=== PATIENT | female | born 1955 | race Two or more races ===

== ENCOUNTER 2019-05-16 14:29 | Emergency (ER) | payer OTHER ==
--- NOTE | 2019-05-16 15:04 | EDM.PDOC ---
ED HPI GENERAL MEDICAL PROBLEM - General Stated Complaint: ANXIETY Time Seen by Provider: 05/16/19 15:03 Source of Information: Reports: Patient History Limitations: Reports: No Limitations - History of Present Illness INITIAL COMMENTS - FREE TEXT/NARRATIVE: HISTORY AND PHYSICAL: History of present illness: Patient is a 64-year-old female who presents to the emergency room today requesting a medication refill. Patient has a history of anxiety and does take Xanax daily. She states she ran out of her medication and is originally from [place]. She does not return home for 7 days. Patient denies any fever, chills, headache, change in vision, syncope or near syncope. Denies any chest pain, back pain, shortness of breath or cough. Denies any abdominal pain, nausea , vomiting, diarrhea, constipation or dysuria. Has not noted any blood in urine or stool. Patient has been eating and drinking appropriately. Review of systems: As per history of present illness and below otherwise all systems reviewed and negative. Past medical history: As per history of present illness and as reviewed below otherwise noncontributory. Surgical history: As per history of present illness and as reviewed below otherwise noncontributory. Social history: See social history for further information Family history: As per history of present illness and as reviewed below otherwise noncontributory. Physical exam: General: Well-developed and well-nourished 64-year-old female. Alert and oriented. Nontoxic appearing and in no acute distress. HEENT: Atraumatic, normocephalic, pupils equal and reactive bilaterally, negative for conjunctival pallor or scleral icterus, mucous membranes moist, trachea midline. No drooling or trismus noted. No meningeal signs. No hot potato voice noted. Lungs: Clear to auscultation, breath sounds equal bilaterally, chest nontender. Heart: S1S2, regular rate and rhythm without overt murmur Abdomen: Soft, nondistended, nontender. Skin: Intact, warm, dry. No lesions or rashes noted. Extremities: Atraumatic, moves all extremities per self without difficulty or deficits, negative for cords or calf pain. Neurovascular unremarkable. Neuro: Awake, alert, oriented. Cranial nerves II through XII unremarkable. Cerebellum unremarkable. Motor and sensory unremarkable throughout. Exam nonfocal. Notes: Patient is aware that medications are typically not refilled through the emergency room. She does have an appointment next week. I will give her a limited amount of medication to use as needed. Vital signs are stable. She offers no other concerns or complaints and declines any diagnostics at this time. Supportive care measures were reviewed and discussed. Voices understanding and is agreeable to plan of care. Denies any further questions or concerns at this time. Diagnostics: None Therapeutics: None Prescription: Xanax 0.5mg (#21) Impression: Anxiety Encounter for medication refill Plan: 1. Follow-up with your primary care provider for further medication refill. 2. Return to the ED as needed and as discussed. Definitive disposition and diagnosis as appropriate pending reevaluation and review of above. - Related Data Allergies Allergy/AdvReac Type Severity Reaction Status Date / Time metoclopramide [From Reglan] Allergy Airway Verified 05/16/19 15:05 Tightness prochlorperazine Allergy Airway Verified 05/16/19 15:05 [From Compazine] Tightness Home Meds: Home Meds ALPRAZolam [Alprazolam] 1 tab PO BID 05/16/19 [History] ALPRAZolam [Xanax] 0.5 mg PO TID PRN #21 tablet 05/16/19 [Rx] Amitriptyline [Elavil] 1 tab PO TID 05/16/19 [History] Biotin 1 tab PO DAILY 05/16/19 [History] Calcium Carbonate [Calcium] 1 tab PO DAILY 05/16/19 [History] Dicyclomine [Bentyl] 1 tab PO TID 05/16/19 [History] Levothyroxine Sodium [Synthroid] 1 tab PO DAILY 05/16/19 [History] ED ROS GENERAL - Review of Systems Review Of Systems: ROS reveals no pertinent complaints other than HPI. ED EXAM, GENERAL - Physical Exam Exam: See Below (See dictation) Course - Vital Signs Last Recorded V/S: Last Vital Signs Temp 98.0 F 05/16/19 15:00 Pulse 84 05/16/19 15:00 Resp 16 05/16/19 15:00 BP 129/69 05/16/19 15:00 Pulse Ox 94 L 05/16/19 15:00 Departure - Departure Time of Disposition: 15:07 Disposition: Home, Self-Care 01 Clinical Impression: Encounter for medication refill, Anxiety - Discharge Information Prescriptions: ALPRAZolam [Xanax] 0.5 mg PO TID PRN #21 tablet PRN Reason: Anxiety Referrals: PCP,None [Primary Care Provider] - Additional Instructions: The following information is given to patients seen in the emergency department who are being discharged to home. This information is to outline your options for follow-up care. We provide all patients seen in our emergency department with a follow-up referral. The need for follow-up, as well as the timing and circumstances, are variable depending upon the specifics of your emergency department visit. If you don't have a primary care physician on staff, we will provide you with a referral. We always advise you to contact your personal physician following an emergency department visit to inform them of the circumstance of the visit and for follow-up with them and/or the need for any referrals to a consulting specialist. The emergency department will also refer you to a specialist when appropriate. This referral assures that you have the opportunity for follow-up care with a specialist. All of these measure are taken in an effort to provide you with optimal care, which includes your follow-up. Under all circumstances we always encourage you to contact your private physician who remains a resource for coordinating your care. When calling for follow-up care, please make the office aware that this follow-up is from your recent emergency room visit. If for any reason you are refused follow-up, please contact the [facility] at and asked to speak to the emergency department charge nurse. [facility] [address] [place] [id number] [facility] [address] [place] [id number] 1. Follow-up with your primary care provider for further medication refill. 2. Return to the ED as needed and as discussed.
== END 2019-05-16 15:37 | disposition home or self-care (01) ==
LOC: MW.ED 14:29
DX: F41.9 Anxiety disorder, unspecified (principal); Z88.8 Allergy status to other drugs, medicaments and biological substances; Z76.0 Encounter for issue of repeat prescription
CPT/HCPCS: 99281; 99282

== ENCOUNTER 2019-05-21 16:55 | Emergency (ER) | payer OTHER ==
--- NOTE | 2019-05-21 17:39 | EDM.PDOC ---
ED HPI GENERAL MEDICAL PROBLEM - General Chief Complaint: Medication Administration Stated Complaint: UNKNOWN Time Seen by Provider: 05/21/19 17:26 - History of Present Illness INITIAL COMMENTS - FREE TEXT/NARRATIVE: HISTORY AND PHYSICAL: History of present illness: Patient is 64-year-old female who uses alprazolam 3 times a day for years presents with a concern of medication refill patient does have 6 tablets left but she will not be seen her doctor until standing is concerned about running out and possible complications related to that. She denies any other concern Review of systems: As per history of present illness and below otherwise all systems reviewed and negative. Past medical history: As per history of present illness and as reviewed below otherwise noncontributory. Surgical history: As per history of present illness and as reviewed below otherwise noncontributory. Social history: No reported history of drug or alcohol abuse. Family history: As per history of present illness and as reviewed below otherwise noncontributory. Physical exam: HEENT: Atraumatic, normocephalic, pupils reactive, negative for conjunctival pallor or scleral icterus, mucous membranes moist, throat clear, neck supple, nontender, trachea midline. Lungs: Clear to auscultation, breath sounds equal bilaterally, chest nontender. Heart: S1S2, regular, negative for clicks, rubs, or JVD. Abdomen: Soft, nondistended, nontender. Negative for masses or hepatosplenomegaly. Negative for costovertebral tenderness. Pelvis: Stable nontender. Genitourinary: Deferred. Rectal: Deferred. Extremities: Atraumatic, negative for cords or calf pain. Neurovascular unremarkable. Neuro: Awake, alert, oriented. Cranial nerves II through XII unremarkable. Cerebellum unremarkable. Motor and sensory unremarkable throughout. Exam nonfocal. Diagnostics: None Therapeutics: None Impression: #1 medication refill Definitive disposition and diagnosis as appropriate pending reevaluation and review of above. - Related Data Allergies Allergy/AdvReac Type Severity Reaction Status Date / Time metoclopramide [From Reglan] Allergy Airway Verified 05/21/19 17:26 Tightness prochlorperazine Allergy Airway Verified 05/21/19 17:26 [From Compazine] Tightness Home Meds: Home Meds ALPRAZolam [Xanax] 0.5 mg PO TID PRN #21 tablet 05/16/19 [Rx] Amitriptyline [Elavil] 1 tab PO TID 05/16/19 [History] Biotin 1 tab PO DAILY 05/16/19 [History] Calcium Carbonate [Calcium] 1 tab PO DAILY 05/16/19 [History] Dicyclomine [Bentyl] 1 tab PO TID 05/16/19 [History] Levothyroxine Sodium [Synthroid] 1 tab PO DAILY 05/16/19 [History] Past Medical History [employer] History: Reports: Psychiatric History: Reports: Anxiety Endocrine/Metabolic History: Reports: Hypothyroidism - Infectious Disease History Infectious Disease History: Reports: Chicken Pox - Past Surgical History Endocrine Surgical History: Reports: Thyroidectomy Social & Family History - Family History Family Medical History: Noncontributory - Tobacco Use Smoking Status *Q: Never Smoker - Recreational Drug Use Recreational Drug Use: No ED ROS GENERAL - Review of Systems Review Of Systems: ROS reveals no pertinent complaints other than HPI. ED EXAM, GENERAL - Physical Exam Exam: See Below (See dictation) Course - Vital Signs Last Recorded V/S: Last Vital Signs Temp 36.4 C 05/21/19 17:23 Pulse 105 H 05/21/19 17:23 Resp 18 05/21/19 17:23 BP 150/95 H 05/21/19 17:23 Pulse Ox 94 L 05/21/19 17:23 Departure - Departure Time of Disposition: 17:38 Disposition: Home, Self-Care 01 Condition: Good Clinical Impression: Encounter for medication refill, Anxiety - Discharge Information Referrals: PCP,None [Primary Care Provider] - Additional Instructions: The following information is given to patients seen in the emergency department who are being discharged to home. This information is to outline your options for follow-up care. We provide all patients seen in our emergency department with a follow-up referral. The need for follow-up, as well as the timing and circumstances, are variable depending upon the specifics of your emergency department visit. If you don't have a primary care physician on staff, we will provide you with a referral. We always advise you to contact your personal physician following an emergency department visit to inform them of the circumstance of the visit and for follow-up with them and/or the need for any referrals to a consulting specialist. The emergency department will also refer you to a specialist when appropriate. This referral assures that you have the opportunity for followup care with a specialist. All of these measure are taken in an effort to provide you with optimal care, which includes your followup. Under all circumstances we always encourage you to contact your private physician who remains a resource for coordinating your care. When calling for followup care, please make the office aware that this follow-up is from your recent emergency room visit. If for any reason you are refused follow-up, please contact the [facility] emergency department at and asked to speak to the emergency department charge nurse. Medications as prescribed keep scheduled appointment on Monday return as needed as discussed []
== END 2019-05-21 17:51 | disposition home or self-care (01) ==
LOC: MW.ED 16:55
DX: Z76.0 Encounter for issue of repeat prescription (principal); F41.9 Anxiety disorder, unspecified; E03.9 Hypothyroidism, unspecified; Z88.8 Allergy status to other drugs, medicaments and biological substances; Z79.899 Other long term (current) drug therapy
CPT/HCPCS: 99281

== ENCOUNTER 2023-08-07 16:52 | Emergency (ER) | payer MEDICARE, OTHER ==
[2023-08-07 22:46] LABS: BASOPHILS PERCENT AUTO 0.4 % (0.0-1.5); EOSINOPHILS ABSOLUTE AUTO 0.3 K/uL (0.0-0.7); EOSINOPHILS PERCENT AUTO 3.8 % (0.0-7.0); HEMATOCRIT 36.2 % (36.0-46.0); HEMOGLOBIN 12.2 g/dL (12.0-16.0); LYMPHOCYTES ABSOLUTE AUTO 2.1 K/uL (0.6-2.4); LYMPHOCYTES PERCENT AUTO 27.8 % (16.0-40.0); MEAN CORPUSCULAR HEMOGLOBIN 34.2 pg (27.0-32.0); MEAN CORPUSCULAR HGB CONC 33.7 g/dL (31.0-37.0); MEAN CORPUSCULAR VOLUME 101.4 fL (80.0-98.0); MONOCYTES ABSOLUTE AUTO 0.8 K/uL (0.0-0.8); MONOCYTES PERCENT AUTO 11.2 % (0.0-15.0); NEUTROPHILS ABSOLUTE AUTO 4.2 K/uL (1.4-5.7); NEUTROPHILS PERCENT AUTO 56.8 % (48.0-80.0); NRBC ABSOLUTE 0 K/uL; PLATELET COUNT,PLT 209 K/uL (150-400); RED BLOOD CELL COUNT 3.57 M/uL (4.30-5.90); WHITE BLOOD CELL COUNT,WBC 7.42 K/uL (4.0-11.0)
[2023-08-07 23:21] LABS: A/G RATIO 0.9 (0.9-1.6); ALBUMIN 3.2 g/dL (3.4-5.0); BILIRUBIN TOTAL 0.2 mg/dL (0.2-1.0); CALCIUM 9.5 mg/dL (8.5-10.1); CREATININE 1.2 mg/dL (0.6-1.0); POTASSIUM,K 4.1 mmol/L (3.5-5.1); PROTEIN TOTAL,TP 6.8 g/dL (6.4-8.2)
[2023-08-07] MEDS ORDERED: Rivaroxaban 10 MG Tab PO ONE (23:47)
[2023-08-07] MEDS ORDERED: oxyCODONE 5 MG/5 ML Cup PO ONE (23:52)
[2023-08-08] MEDS ORDERED: oxyCODONE 5 MG Tab PO ONE (00:18)
== END 2023-08-08 00:35 | disposition home or self-care (01) ==
LOC: MW.ED 16:52
DX: I80.01 Phlebitis and thrombophlebitis of superficial vessels of right lower extremity (principal); E03.9 Hypothyroidism, unspecified; Z79.899 Other long term (current) drug therapy; Z88.8 Allergy status to other drugs, medicaments and biological substances
CPT/HCPCS: 36415; 73610; 80053; 85025; 93970; 93971; 99284; A9270; 99283

== ENCOUNTER 2024-11-10 11:38 | Emergency (ER) | payer BC, MEDICARE ==
[2024-11-10] MEDS: Acetaminophen 500 MG Tab PO ONE (12:33)
[2024-11-10] MEDS: Sodium Chloride 0.9% 500 ML IV ONE (12:36)
[2024-11-10 12:43] LABS: BASOPHILS ABSOLUTE AUTO 0.04 K/uL (0.00-0.20); BASOPHILS PERCENT AUTO 0.7 % (0.0-1.0); EOSINOPHILS PERCENT AUTO 3.3 % (0.0-6.0); HEMOGLOBIN 10.3 g/dL (12.0-16.0); IMMATURE GRAN ABSOLUTE AUTO 0.02 K/uL (0.00-0.05); IMMATURE GRAN PERCENT AUTO 0.3 % (0.0-0.4); LYMPHOCYTES ABSOLUTE AUTO 1.48 K/uL (1.00-4.80); LYMPHOCYTES PERCENT AUTO 24.7 % (24.0-44.0); MEAN CORPUSCULAR HEMOGLOBIN 33.2 pg (28.0-32.0); MEAN CORPUSCULAR HGB CONC 33.2 g/dL (32.0-36.0); MEAN PLATELET VOLUME 9.8 fL (9.4-12.3); MONOCYTES ABSOLUTE AUTO 0.86 K/uL (0.00-0.80); MONOCYTES PERCENT AUTO 14.4 % (0.0-8.0); NEUTROPHILS ABSOLUTE AUTO 3.39 K/uL (1.80-7.70); NEUTROPHILS PERCENT AUTO 56.6 % (41.0-71.0); PLATELET COUNT,PLT 248 K/uL (150-400); WHITE BLOOD CELL COUNT,WBC 5.99 K/uL (3.9-11.3)
[2024-11-10 13:17] LABS: A/G RATIO 0.8 (0.9-1.6); ALBUMIN 2.5 g/dL (3.4-5.0); BILIRUBIN TOTAL 0.1 mg/dL (0.2-1.0); CALCIUM 7.2 mg/dL (8.5-10.1); CARBON DIOXIDE,CO2 28.1 mmol/L (21.0-32.0); CREATININE 1.5 mg/dL (0.6-1.0); EST CRCL DRUG DOSING (CG) 33.14 mL/min; MAGNESIUM 1.7 mg/dL (1.8-2.4); POTASSIUM,K 4.3 mmol/L (3.5-5.1); PROTEIN TOTAL,TP 5.7 g/dL (6.4-8.2)
[2024-11-10] MEDS: Morphine 4 MG/ML Syringe IVPUSH ONE (13:46)
[2024-11-10] MEDS: Ketorolac 30 MG/ML SDV IVPUSH ONE ×2 (13:50→17:16)
[2024-11-10 15:39] LABS: TSH ULTRASENSITIVE 1.74 uIU/mL (0.36-3.74)
[2024-11-10 16:05] LABS: APPEARANCE,URINE SLT CLOUDY; BILIRUBIN,URINE NEGATIVE (NEGATIVE); COLOR,URINE YELLOW; GLUCOSE,URINE NEGATIVE (NEGATIVE); KETONES,URINE NEGATIVE (NEGATIVE); LEUKOCYTE ESTERASE,URINE SMALL (NEGATIVE); NITRITE,URINE NEGATIVE (NEGATIVE); OCCULT BLOOD,URINE NEGATIVE (NEGATIVE); PH,URINE 6.5 (5.0-8.0); PROTEIN,URINE NEGATIVE (NEGATIVE); UROBILINOGEN,URINE 0.2 EU/dL (<2.0)
[2024-11-10 16:17] LABS: EPITHELIAL CELLS,URINE MODERATE (NONE-FEW); WBC,URINE 35-45 (0-5/HPF)
[2024-11-10 16:18] LABS: BACTERIA,URINE 4+ (NEGATIVE)
[2024-11-10] MEDS: cefTRIAXone 1 GM in Sodium Chloride 0.9% 50 ML IV ONE (17:09)
== END 2024-11-10 17:43 | disposition home or self-care (01) ==
LOC: MW.ED 11:38
DX: N12 Tubulo-interstitial nephritis, not specified as acute or chronic (principal); K21.9 Gastro-esophageal reflux disease without esophagitis; E03.9 Hypothyroidism, unspecified; Z90.49 Acquired absence of other specified parts of digestive tract; Z88.8 Allergy status to other drugs, medicaments and biological substances; Z79.890 Hormone replacement therapy; Z79.899 Other long term (current) drug therapy; Z75.8 Other problems related to medical facilities and other health care
CPT/HCPCS: 36415; 71045; 80053; 81001; 83735; 83880; 84443; 84484; 85025; 87086; 87428; 93005; 93970; 96361; 96365; 96375; 96376; 99284; A9270; J0696; J1885; J3490; J7040

== ENCOUNTER 2024-11-23 10:55 | Emergency (ER) | payer MEDICARE ==
[2024-11-23 12:19] LABS: BASOPHILS ABSOLUTE AUTO 0.05 K/uL (0.00-0.20); BASOPHILS PERCENT AUTO 0.8 % (0.0-1.0); EOSINOPHILS ABSOLUTE AUTO 0.41 K/uL (0.00-0.45); EOSINOPHILS PERCENT AUTO 6.2 % (0.0-6.0); HEMATOCRIT 33.6 % (37.0-47.0); HEMOGLOBIN 11.3 g/dL (12.0-16.0); IMMATURE GRAN ABSOLUTE AUTO 0.02 K/uL (0.00-0.05); IMMATURE GRAN PERCENT AUTO 0.3 % (0.0-0.4); LYMPHOCYTES ABSOLUTE AUTO 1.59 K/uL (1.00-4.80); LYMPHOCYTES PERCENT AUTO 24.1 % (24.0-44.0); MEAN CORPUSCULAR HEMOGLOBIN 33.5 pg (28.0-32.0); MEAN CORPUSCULAR HGB CONC 33.6 g/dL (32.0-36.0); MEAN CORPUSCULAR VOLUME 99.7 fL (83.0-99.0); MEAN PLATELET VOLUME 9.6 fL (9.4-12.3); MONOCYTES ABSOLUTE AUTO 0.93 K/uL (0.00-0.80); MONOCYTES PERCENT AUTO 14.1 % (0.0-8.0); NEUTROPHILS ABSOLUTE AUTO 3.61 K/uL (1.80-7.70); NEUTROPHILS PERCENT AUTO 54.5 % (41.0-71.0); PLATELET COUNT,PLT 281 K/uL (150-400); RED BLOOD CELL COUNT 3.37 M/uL (4.10-5.30); WHITE BLOOD CELL COUNT,WBC 6.61 K/uL (3.9-11.3)
[2024-11-23 12:47] LABS: BILIRUBIN,URINE NEGATIVE (NEGATIVE); COLOR,URINE YELLOW; GLUCOSE,URINE NEGATIVE (NEGATIVE); KETONES,URINE NEGATIVE (NEGATIVE); LEUKOCYTE ESTERASE,URINE SMALL (NEGATIVE); NITRITE,URINE NEGATIVE (NEGATIVE); OCCULT BLOOD,URINE NEGATIVE (NEGATIVE); PROTEIN,URINE NEGATIVE (NEGATIVE); UROBILINOGEN,URINE 0.2 EU/dL (<2.0)
[2024-11-23 12:57] LABS: APPEARANCE,URINE HAZY
[2024-11-23 12:58] LABS: BACTERIA,URINE FEW (NEGATIVE); EPITHELIAL CELLS,URINE FEW (NONE-FEW); RBC,URINE 0-2 (0-2/HPF); WBC,URINE 0-5 (0-5/HPF)
[2024-11-23 12:59] LABS: A/G RATIO 0.8 (0.9-1.6); ALBUMIN 2.8 g/dL (3.4-5.0); BILIRUBIN TOTAL 0.3 mg/dL (0.2-1.0); CALCIUM 8.4 mg/dL (8.5-10.1); CARBON DIOXIDE,CO2 28.9 mmol/L (21.0-32.0); CREATININE 1.7 mg/dL (0.6-1.0); EST CRCL DRUG DOSING (CG) 29.24 mL/min; POTASSIUM,K 4.2 mmol/L (3.5-5.1); PROTEIN TOTAL,TP 6.4 g/dL (6.4-8.2)
[2024-11-23 13:04] LABS: LACTIC ACID 0.6 mmol/L (0.4-2.0)
[2024-11-23 13:07] LABS: TSH ULTRASENSITIVE 4.94 uIU/mL (0.36-3.74)
[2024-11-23] MEDS: Ketorolac 10 MG Tab PO ONE (16:08)
== END 2024-11-23 17:24 | disposition home or self-care (01) ==
LOC: MW.ED 10:55
DX: M17.0 Bilateral primary osteoarthritis of knee (principal); E03.9 Hypothyroidism, unspecified; K21.9 Gastro-esophageal reflux disease without esophagitis; Z79.899 Other long term (current) drug therapy; Z88.8 Allergy status to other drugs, medicaments and biological substances; Z75.8 Other problems related to medical facilities and other health care
CPT/HCPCS: 36415; 73562; 80053; 81001; 83605; 84443; 84484; 85025; 87086; 93005; 93970; 99284; A9270